=== PATIENT | female | born 1985 | race Caucasian/White ===

== ENCOUNTER 2018-10-08 09:54 | Emergency (ER) | payer MEDICAID ==
[2018-10-08 13:08] LABS: ADD MAN DIFF? NO
[2018-10-08 13:10] LABS: WHITE BLOOD COUNT 10.6 10^3/ul (4.8-10.8)
[2018-10-08 13:10] LABS: BASOPHILS % 0.3 % (0.0-2.0); EOSINOPHILS % 0.1 % (0.0-7.0); HEMATOCRIT 39.8 % (37.0-47.0); LYMPHOCYTES # 1.9 10^3/ul (0.8-2.9); LYMPHOCYTES % 17.7 % (15.0-51.0); MEAN CORPUSCULAR HEMOGLOBIN 29.7 pg (29.0-33.0); MEAN CORPUSCULAR HGB CONC 32.7 g/dl (32.0-37.0); MEAN CORPUSCULAR VOLUME 91.1 fl (82.0-101.0); MEAN PLATELET VOLUME 10.8 fl (7.4-10.4); MONOCYTE # 0.6 10^3/ul (0.3-0.9); MONOCYTES % 5.9 % (0.0-11.0); NEUTROPHILS % 75.4 % (39.0-77.0); PLATELET COUNT 226 10^3/UL (140-415); RED BLOOD COUNT 4.37 10^6/ul (4.20-5.40); RED CELL DISTRIBUTION WIDTH 13.8 % (11.5-14.5)
[2018-10-08 13:16] LABS: ADD UMIC YES; UR ASCORBIC ACID NEGATIVE (NEGATIVE); UR BACTERIA FEW /HPF (NONE SEEN); UR BILIRUBIN (Dip) NEGATIVE (NEGATIVE); UR BLOOD (Dip) 2+ mg/dL (NEGATIVE); UR CLARITY SLIGHTLY CLOUDY (CLEAR); UR COLOR YELLOW (YELLOW); UR GLUCOSE (Dip) NEGATIVE (NEGATIVE); UR KETONES (Dip) TRACE mg/dL (NEGATIVE); UR LEUKOCYTE ESTERASE (Dip) 3+ Leu/ul (NEGATIVE); UR MUCUS FEW /HPF (NONE SEEN); UR NITRITE (Dip) NEGATIVE (NEGATIVE); UR RBC 11 /HPF (0-5); UR SPECIFIC GRAVITY (Dip) 1.011 (1.003-1.030); UR SQUAMOUS EPITHELIAL CELL FEW /HPF (FEW); UR TOTAL PROTEIN (Dip) NEGATIVE (NEGATIVE); UR UROBILINOGEN (Dip) NEGATIVE (NEGATIVE); UR WBC 9 /HPF (0-5)
== END 2018-10-08 15:17 | disposition home or self-care (01) ==
LOC: FTE 15:17
DX: O23.42 Unspecified infection of urinary tract in pregnancy, second trimester (principal); R10.2 Pelvic and perineal pain; Z3A.14 14 weeks gestation of pregnancy
CPT/HCPCS: 76801; 81001; 84702; 85025; 86900; 86901; 99284-25

== ENCOUNTER 2019-04-08 02:40 | Inpatient (IN) | payer MEDICAID ==
[2019-04-08] MEDS ORDERED: BUTORPHANOL 2 MG INJ IV ×2 (03:30)
[2019-04-08] MEDS ORDERED: LIDOCAINE 1% (MPF) 30 ML INJ INJ (03:30)
[2019-04-08] MEDS ORDERED: MISOPROSTOL 200 MCG TAB PR ×2 (03:30→18:00)
[2019-04-08] MEDS ORDERED: MINERAL OIL LIGHT 10 ML VIAL TOP (03:30)
[2019-04-08] MEDS ORDERED: OXYTOCIN 30 UNITS/LR 500 ML IV ×4 (03:30→18:00)
[2019-04-08] MEDS ORDERED: IBUPROFEN 600 MG TAB PO (03:30)
[2019-04-08] MEDS ORDERED: CARBOPROST 250 MCG INJ IM ×2 (03:30→18:00)
[2019-04-08] MEDS ORDERED: METHYLERGONOVINE 0.2 MG INJ IM ×2 (03:30→18:00)
[2019-04-08] MEDS: LACTATED RINGER'S 1,000 ML IV ×4 (04:10→11:50)
[2019-04-08] MEDS: AMPICILLIN 2 GM/NS (PMX) 100 ML IV (05:06)
[2019-04-08] MEDS: MISOPROSTOL 50 MCG CAPSULE PO ×2 (05:06→12:00)
[2019-04-08] MEDS ORDERED: ONDANSETRON 4 MG INJ ×2 (11:04→12:09)
[2019-04-08] MEDS ORDERED: CITRIC ACID/NA CITRATE 30 ML CUP (11:05)
[2019-04-08] MEDS: CITRIC ACID/NA CITRATE 30 ML CUP PO (11:15)
[2019-04-08] MEDS: ONDANSETRON 4 MG INJ IV (11:17)
[2019-04-08] MEDS: AMPICILLIN 1 GM/NS (PMX) 50 ML IV (12:00)
[2019-04-08] MEDS ORDERED: CEFAZOLIN 1 GM INJ (12:00)
[2019-04-08] MEDS ORDERED: PHENYLephrine (100 MCG/ML) 10ML SYG (12:04)
[2019-04-08] MEDS ORDERED: morphine SULFATE/PF (10 MG/10 ML) INJ (12:05)
[2019-04-08] MEDS ORDERED: OXYTOCIN 10 UNIT INJ (12:05)
[2019-04-08] MEDS ORDERED: DEXAMETHASONE 4 MG/ML 1 ML INJ (12:09)
[2019-04-08] MEDS ORDERED: KETOROLAC 30 MG INJ (12:09)
[2019-04-08] MEDS ORDERED: METOCLOPRAMIDE 10 MG INJ (12:09)
[2019-04-08] MEDS ORDERED: MEPERIDINE 100 MG INJ (12:32)
[2019-04-08] MEDS: OXYTOCIN 30 UNITS/LR 500 ML IV ×2 (13:39→22:12)
[2019-04-08] MEDS: CEFAZOLIN 2 GM/50 ML (PMX) 50 ML IVPB (15:26)
[2019-04-08] MEDS ORDERED: HYDROmorphONE 0.5 MG/0.5 ML SYG IV ×2 (17:30)
[2019-04-08] MEDS ORDERED: HYDROCODONE/APAP (5/325) TAB PO (17:30)
[2019-04-08] MEDS ORDERED: ACETAMINOPHEN 500 MG TAB PO (17:30)
[2019-04-08] MEDS ORDERED: NALOXONE (0.4 MG/ML) INJ IV (17:30)
[2019-04-08] MEDS ORDERED: ONDANSETRON 4 MG INJ IV (17:30)
[2019-04-08] MEDS ORDERED: NALBUPHINE HCL (10 MG/1 ML) INJ IV (17:30)
[2019-04-08] MEDS ORDERED: morphine 2 MG INJ IV ×2 (17:30)
[2019-04-08] MEDS ORDERED: DIPHENHYDRAMINE 50 MG INJ IV (17:30)
[2019-04-08] MEDS: IBUPROFEN 600 MG TAB PO (18:00)
[2019-04-08] MEDS ORDERED: NACL 0.9% 3 ML SYG IV (18:00)
[2019-04-09] MEDS: KETOROLAC 30 MG INJ IV ×2 (03:30→11:38)
[2019-04-09] MEDS: IBUPROFEN 600 MG TAB PO ×5 (06:00→23:45)
[2019-04-09] MEDS: OXYCODONE/ACETAMINOPHEN (5/325) TAB PO (17:15)
[2019-04-10] MEDS: IBUPROFEN 600 MG TAB PO ×2 (05:38→11:22)
[2019-04-10] MEDS: LANOLIN HPA 1 PKT TOP (11:21)
[2019-04-10] MEDS: OXYCODONE/ACETAMINOPHEN (5/325) TAB PO (11:22)
[2019-04-11] MEDS ORDERED: DIPHTH/TET/ACEL PERTUSS (ADULT) 0.5 ML VIAL IM* (09:00)
== END 2019-04-10 15:30 | disposition home or self-care (01) | DRG 807 ==
LOC: OBT 02:40 → L-D 02:40 → OBT 03:25 → L-D 03:25 → PP1 16:57
PROC: 10E0XZZ Delivery of Products of Conception, External Approach (ICD-10-PCS; principal; 2019-04-08)
DX: O36.63X0 Maternal care for excessive fetal growth, third trimester, not applicable or unspecified (principal); Z37.0 Single live birth; O48.0 Post-term pregnancy; Z3A.40 40 weeks gestation of pregnancy
CPT/HCPCS: 76815; 85025; 85610; 85730; 86592; 86850; 86900; 86901; 87340; 99464